=== PATIENT | female | born 1940 ===

== ENCOUNTER 2017-01-01 11:27 | Day surgery (SDC) | payer MEDICARE, OTHER ==
[2016-04-28 18:42] VITALS: BMI 23.8
[2017-01-01] MEDS ORDERED: Lidocaine 2% Inj (20ml) ONE (11:35)
[2017-01-01] MEDS ORDERED: Nitroglycerin 50mg in D5W 50 MG/250 ML BOTTLE IV ONE (11:36)
[2017-01-01] MEDS ORDERED: Iodixanol 320 MG/ML 100 ML BOTTLE IV ONE (11:36)
[2017-01-01] MEDS ORDERED: Iodixanol 320 MG/ML 200 ML BOTTLE IV ONE (11:36)
[2017-01-01 12:33] LABS: BASO # 0.01 K/mm3 (0.0-2.0); BASO % 0.2 % (0.0-3.0); EOS # 0.1 (0.0-0.7); EOS % 1.7 % (1.5-5.0); GRAN # 3.96 (1.4-6.5); GRAN % 69.2 % (50.0-68.0); LYMPH # 1.3 (1.2-3.4); LYMPH % 23.3 % (22.0-35.0); MEAN CELL VOLUME 89.7 fl (80.0-105.0); MEAN CORPUSCULAR HEMOGLOBIN 29.5 pg (25.0-35.0); MEAN CORPUSCULAR HGB CONC 32.9 g/dl (31.0-37.0); MEAN PLATELET VOLUME 9.9 fl (7.0-11.0); MONO # 0.3 (0.1-0.6); MONO % 5.6 % (1.0-6.0); RED CELL DISTRIBUTION WIDTH 13.2 % (11.5-14.5); WHITE BLOOD COUNT 5.7 10^3/ul (4.5-11.0)
[2017-01-01 12:42] LABS: INR 0.93 (0.93-1.08); PARTIAL THROMBOPLASTIN TIME 22.2 Seconds (23.7-30.8)
[2017-01-01 13:14] LABS: BLOOD UREA NITROGEN 27 mg/dL (7-21); CALCIUM 10.3 mg/dL (8.4-10.5); CARBON DIOXIDE 34 mmol/L (21-33); CHLORIDE 100 mmol/L (98-107); GFR AFRICAN-AMERICAN > 60; GLUCOSE,RANDOM 92 mg/dL (70-110); POTASSIUM 4.8 mmol/L (3.6-5.0); SODIUM 141 mmol/L (132-148)
[2017-01-01] MEDS ORDERED: Midazolam 2 MG/2 ML VIAL ONE ×3 (14:51→16:16)
[2017-01-01] MEDS ORDERED: Oxycodone/Acetaminophen 5/325 mg Tab PO PRN (17:02)
[2017-01-01] MEDS ORDERED: Sodium Chloride 0.45% 1,000 ML IV SCH (17:15)
[2017-01-01 18:19] VITALS: TEMP 98.3
--- NOTE | 2017-01-01 19:13 | VASCULAR ---
PROCEDURE: Abdominal aortogram and bilateral lower extremity runoff with right selective views. HISTORY: Severe peripheral vascular disease. Previous right SFA endovascular intervention in 2013. Occluded stent with right foot ischemia. PHYSICIAN(S): Deshawn Fan MD. TECHNIQUE: The relative risks and indications of the procedure were explained to the patient and consent obtained. The patient was hydrated prior to the procedure and the appropriate labs drawn. The patient was placed supine on the arteriogram table and the left groin prepped and draped in the usual sterile fashion. Conscious sedation and monitoring were provided throughout the procedure by a nurse. Via a left common femoral artery approach, a 5 Turkish sheath was placed in the left groin. Through the sheath and over a guidewire, a 5 Turkish flush catheter was placed in the abdominal aorta at the level of the renal arteries and a PA DSA abdominal aortogram performed. The catheter was pulled down to the aortic bifurcation and bilateral oblique DSA pelvic arteriograms performed. Overlapping bilateral lower extremity DSA arteriograms were obtained from the inguinal ligaments to the ankles. 0.035 glidewire is advanced over the bifurcation and placed in the right common femoral artery. A 6 Turkish 45 cm sheath was placed in the right common femoral artery. The occluded right SFA stent was cannulated with a 5 Turkish catheter and 0.035 glidewire. With some difficulty the stent an occluded right SFA was crossed in a subintimal manner. Unfortunately, re-entry could not be obtained in the right popliteal artery above the knee. Multiple catheters and guidewires were attempted. A [place] crossing catheter was also attempted. The sheath was removed and hemostasis obtained. The patient tolerated the procedure well. FINDINGS: The [place] arteries are somewhat small in caliber. There are single renal arteries bilaterally which are widely patent and normal in appearance. The nephrograms are symmetric in appearance. The infrarenal abdominal aorta is widely patent without a radiographically significant stenosis. The aortic bifurcation is widely patent. The common and external iliac arteries are normal in appearance without a significant stenosis. The internal iliac arteries are patent bilaterally. Right lower extremity: The right common femoral artery is patent. The right profunda femoral artery is hypertrophied. The right SFA stent is occluded. The right SFA is occluded throughout its length. There is reconstitution of a small right popliteal artery at the patella. There is severe right trifurcation and tibial occlusive disease. Faint opacification of the right anterior tibial and posterior tibial arteries is noted. Distal opacification was not obtained. Left lower extremity: Left common femoral artery is patent. The left profunda femoral artery is patent. The left superficial femoral artery is patent with 2 moderate calcified stenoses in its mid segment. The left popliteal artery is patent. Once again there is moderate to severe left tibial occlusive disease.. There is 2 vessel runoff via the left anterior tibial and peroneal arteries. The left posterior tibial artery is occluded IMPRESSION: 1. Long segment occlusion of the right SFA and stent. There is reconstitution of a small right popliteal artery at the patella 2. Moderate bilateral tibial occlusive disease. .
[2017-01-01 19:15] VITALS: O2SAT 98
[2017-01-01 19:51] VITALS: BP 138/67; PULSE 76; RESP 17
== END 2017-01-01 19:45 | disposition home or self-care (01) ==
LOC: SDSVAS 11:27
PROVIDERS: ATTEND Radiology Vascular & Interventional Radiology
DX: I73.9 Peripheral vascular disease, unspecified (principal); I10 Essential (primary) hypertension; E11.9 Type 2 diabetes mellitus without complications; Z86.73 Personal history of transient ischemic attack (TIA), and cerebral infarction without residual deficits; D64.9 Anemia, unspecified; M81.0 Age-related osteoporosis without current pathological fracture; Z87.01 Personal history of pneumonia (recurrent); Z90.49 Acquired absence of other specified parts of digestive tract
CPT/HCPCS: 36247; 36415; 75625; 75716; 80048; 85025; 85610; 85730; 99152; 99153; C1725 ×2; C1760 ×2; C1769 ×4; C1887; C1892; C1894 ×2; J0360; J1644; J2250; J2405; J3010; J7030; Q9967

== ENCOUNTER 2017-09-25 13:27 | Emergency (ER) | payer MEDICARE ==
[2017-09-25 13:28] VITALS: BMI 24.6
[2017-09-25 13:49] VITALS: O2SAT 100
--- NOTE | 2017-09-25 14:06 | ED PDOC ---
Arrival/HPI - General Chief Complaint: Weakness/Neurological Deficit Time Seen by Provider: 09/25/17 13:29 Historian: Patient - History of Present Illness Time/Duration: 1 week Symptom Course: Unchanged Past Medical History - Provider Review Nursing Documentation Reviewed: Yes - Infectious Disease Hx of Infectious Diseases: None - Cardiac Hx Hypertension: Yes - Pulmonary Hx Pneumonia: Yes - Neurological Hx Neurological Disorder: No HX Cerebrovascular Accident: Yes (1995) - HEENT Hx Glaucoma: Yes Other/Comment: Dry eye - Endocrine/Metabolic Hx Diabetes Mellitus Type 2: Yes - Hematological/Oncological Hx Anemia: Yes Hx Blood Transfusions: Yes Hx Blood Transfusion Reaction: No - Musculoskeletal/Rheumatological Hx Musculoskeletal Disorders: Yes (R SIDED WEAKNESS) - Gastrointestinal Hx Gastrointestinal Disorders: Yes Other/Comment: CA of colon in past - Genitourinary/Gynecological Hx Genitourinary Disorders: No - Psychiatric Hx Psychophysiologic Disorder: Yes Hx Anxiety: Yes Hx Substance Use: No - Surgical History Hx Section: Yes (x2) Other/Comment: Colon surgery - Anesthesia Hx Anesthesia Reactions: No Hx Malignant Hyperthermia: No - Suicidal Assessment Feels Threatened In Home Enviroment: No Family/Social History - Physician Review Nursing Documentation Reviewed: Yes Family/Social History: No Known Family HX Smoking Status: Never Smoked Hx Alcohol Use: No Hx Substance Use: No Allergies/Home Meds Allergies/Adverse Reactions: Allergies No Known Allergies Allergy (Verified 09/25/17 13:40) Home Medications: Home Meds Medication Instructions Recorded Confirmed Aspirin [Aspir 81] 81 mg PO DAILY 11/07/12 09/25/17 Metformin HCl 1,000 mg PO BID 11/07/12 09/25/17 Tramadol HCl/Acetaminophen 1 tab PO TID PRN 04/28/16 09/25/17 [Tramadol-Acetaminophn 37.5-325] Carvedilol [Coreg] 6.25 mg PO BID 12/27/16 09/25/17 Losartan [Cozaar] 50 mg PO DAILY 12/27/16 09/25/17 Alendronate [Fosamax] 1 tab PO QWK 09/25/17 09/25/17 Atorvastatin [Lipitor] 1 tab PO DAILY 09/25/17 09/25/17 Lasix 20 mg PO BID 09/25/17 09/25/17 Lumigan 1 drop OU DAILY 09/25/17 09/25/17 Sertraline [Zoloft] 25 mg PO DAILY 09/25/17 09/25/17 cycloSPORINE [Restasis] 1 drop OU BID 09/25/17 09/25/17 Review of Systems - Review of Systems Constitutional: Fatigue. absent: Weight Change, Fevers, Night Sweats Eyes: Normal. absent: Vision Changes ENT: Normal. absent: Hearing Changes, Sore Throat, Rhinorrhea Respiratory: Normal. absent: Cough, Wheezing Cardiovascular: Normal. absent: Chest Pain, Palpitations, Syncope Gastrointestinal: Normal. absent: Abdominal Pain, Diarrhea, Nausea, Vomiting, Appetite Changes, Anorexia, Food Intolerance Genitourinary Female: Normal Musculoskeletal: Normal. absent: Arthralgias, Back Pain Skin: Normal. absent: Rash Neurological: Normal. absent: Headache, Dizziness, Focal Weakness, Gait Changes , Speech Changes, Facial Droop, Disequilibrium, Seizure Endocrine: Normal Hemo/Lymphatic: Normal Psychiatric: Normal Physical Exam Vital Signs Reviewed: Yes Vital Signs Temp Pulse Resp BP Pulse Ox 09/25/17 13:33 98.3 F 58 L 16 117/64 100 Temperature: Afebrile Blood Pressure: Normal Pulse: Regular Respiratory Rate: Normal Appearance: Positive for: Well-Appearing, Non-Toxic, Comfortable Pain Distress: None Mental Status: Positive for: Alert and Oriented X 3 - Systems Exam Head: Present: Atraumatic, Normocephalic Pupils: Present: PERRL Extroacular Muscles: Present: EOMI Conjunctiva: Present: Normal Mouth: Present: Moist Mucous Membranes Respiratory/Chest: Present: Clear to Auscultation, Good Air Exchange Cardiovascular: Present: Regular Rate and Rhythm, Normal S1, S2 Abdomen: Present: Normal Bowel Sounds. No: Tenderness, Distention, Guarding Upper Extremity: Present: Normal ROM. No: Edema Lower Extremity: Present: Other (unable to flex right knee). No: Normal ROM Neurological: Present: GCS=15, CN II-XII Intact, Speech Normal, Motor Func Grossly Intact, Normal Sensory Function, Memory Normal Skin: Present: Warm Psychiatric: Present: Alert, Oriented x 3 Medical Decision Making ED Course and Treatment: Plan -CBC, EKG, CMP -cardiac iso, magnesium -reasses 09/25/17 14:06 chest xray shows no active disease trop negative 09/25/17 15:22 patient will be DC, to follow up with PMD 09/25/17 15:44 - Lab Interpretations Lab Results: 09/25/17 14:30 09/25/17 14:30 Lab Results 09/25/17 14:30: Sodium 136, Potassium 5.1 H, Chloride 95 L, Carbon Dioxide 29, Anion Gap 17, BUN 37 H, Creatinine 0.9, Est GFR ( Amer) > 60, Est GFR ( Non-Af Amer) > 60, Random Glucose 210 H, Calcium 10.1, Magnesium 1.8, Total Bilirubin 0.6, AST 16, ALT 21, Alkaline Phosphatase 65, Lactate Dehydrogenase 384, Total Creatine Kinase 45, Troponin I < 0.01, Total Protein 7.1, Albumin 4.0 , Globulin 3.0, Albumin/Globulin Ratio 1.3 09/25/17 14:30: Urine Color Yellow, Urine Appearance Clear, Urine pH 6.0, Ur Specific [place] 1.010, Urine Protein Negative, Urine Glucose (UA) 250 H, Urine Ketones Negative, Urine Blood Negative, Urine Nitrate Negative, Urine Bilirubin Negative, Urine Urobilinogen 0.2, Ur Leukocyte Esterase Trace H, Urine RBC 0 - 2 , Urine WBC 2 - 5, Ur Epithelial Cells 4 - 5, Urine Bacteria Few 09/25/17 14:30: PT 11.2, INR 0.98, APTT 34.2 09/25/17 14:30: WBC 7.7 D, RBC 3.72, Hgb 10.5 L, Hct 31.9 L, MCV 85.8 D, MCH 28.2, MCHC 32.9, RDW 12.7, Plt Count 220, MPV 9.9, Gran % 71.9 H, Lymph % (Auto ) 22.4, [place] % (Auto) 4.0, Eos % (Auto) 1.4 L, Baso % (Auto) 0.3, Gran # 5.54, Lymph # (Auto) 1.7, [place] # (Auto) 0.3, Eos # (Auto) 0.1, Baso # (Auto) 0.02 I have reviewed the lab results: Yes - RAD Interpretation Radiology Orders: 09/25/17 14:02 CHEST PORTABLE [RAD] Stat Disposition/Present on Arrival - Present on Arrival Any Indicators Present on Arrival: No History of DVT/PE: No History of Uncontrolled Diabetes: Yes Urinary Catheter: No History of Decub. Ulcer: No History Surgical Site Infection Following: None - Disposition Have Diagnosis and Disposition been Completed?: Yes Diagnosis: Weakness Disposition: HOME/ ROUTINE Disposition Time: 15:44 Condition: FAIR Discharge Instructions (ExitCare): Weakness (ED) Forms: [facility] (Irish)
--- NOTE | 2017-09-25 14:32 | RAD ---
HISTORY: generalized weakness COMPARISON: 07/03/2016 FINDINGS: LUNGS: No active pulmonary disease. PLEURA: No significant pleural effusion identified, no pneumothorax apparent. CARDIOVASCULAR: Normal. OSSEOUS STRUCTURES: No significant abnormalities. VISUALIZED UPPER ABDOMEN: Normal. OTHER FINDINGS: None. IMPRESSION: No active disease.
[2017-09-25 15:03] LABS: BASO # 0.02 K/mm3 (0.0-2.0); BASO % 0.3 % (0.0-3.0); EOS # 0.1 (0.0-0.7); EOS % 1.4 % (1.5-5.0); GRAN # 5.54 (1.4-6.5); GRAN % 71.9 % (50.0-68.0); HEMOGLOBIN 10.5 g/dL (12.0-16.0); LYMPH # 1.7 (1.2-3.4); LYMPH % 22.4 % (22.0-35.0); MEAN CELL VOLUME 85.8 fl (80.0-105.0); MEAN CORPUSCULAR HEMOGLOBIN 28.2 pg (25.0-35.0); MEAN CORPUSCULAR HGB CONC 32.9 g/dl (31.0-37.0); MEAN PLATELET VOLUME 9.9 fl (7.0-11.0); MONO # 0.3 (0.1-0.6); RBC 3.72 10^6/uL (3.5-6.1); RED CELL DISTRIBUTION WIDTH 12.7 % (11.5-14.5); WHITE BLOOD COUNT 7.7 10^3/ul (4.5-11.0)
[2017-09-25 15:04] LABS: URINE BILIRUBIN NEGATIVE (NEGATIVE); URINE BLOOD NEGATIVE (NEGATIVE); URINE GLUCOSE (UA) 250 mg/dL (NEGATIVE); URINE LEUKOCYTE ESTERASE TRACE Leu/uL (NEGATIVE); URINE PROTEIN NEGATIVE mg/dL (<30 mg/dL); URINE UROBILINOGEN 0.2 E.U./dL (<1 E.U./dL)
[2017-09-25 15:07] LABS: URINE APPEARANCE CLEAR (CLEAR); URINE BACTERIA FEW (NEG); URINE COLOR YELLOW (YELLOW); URINE RBC 0 - 2 /hpf (0-2)
[2017-09-25 15:11] LABS: INR 0.98 (0.93-1.08); PARTIAL THROMBOPLASTIN TIME 34.2 Seconds (25.1-36.5); PROTHROMBIN TIME 11.2 SECONDS (9.4-12.5)
[2017-09-25 15:12] LABS: ALB/GLOB RATIO 1.3 (1.1-1.8); ALT/SGPT 21 U/L (7-56); AST/SGOT 16 U/L (14-36); BLOOD UREA NITROGEN 37 mg/dL (7-21); CALCIUM 10.1 mg/dL (8.4-10.5); GFR AFRICAN-AMERICAN > 60; GFR NON-AFRICAN AMERICAN > 60
[2017-09-25 15:24] LABS: TROPONIN I < 0.01 ng/mL
[2017-09-25 15:45] VITALS: PULSE 60; RESP 18
[2017-09-25 16:35] VITALS: BP 142/72; TEMP 98.1
--- NOTE | 2017-09-26 08:15 | CARD ---
APPROVED REPORT EKG Measurement Heart [id number] <Conclusion> Sinus bradycardia Otherwise normal ECG
== END 2017-09-25 16:32 | disposition home or self-care (01) ==
LOC: ED 13:27
DX: R53.1 Weakness (principal); I10 Essential (primary) hypertension; E11.9 Type 2 diabetes mellitus without complications; D64.9 Anemia, unspecified; Z86.73 Personal history of transient ischemic attack (TIA), and cerebral infarction without residual deficits

== ENCOUNTER 2017-11-16 08:41 | Day surgery (SDC) | payer MEDICARE ==
[2017-11-15 08:13] VITALS: BMI 23.1
[2017-11-16] MEDS ORDERED: Sodium Chloride 0.9% 1,000 ML IV SCH (10:00)
[2017-11-16] MEDS ORDERED: Propofol 10 mg/ml Inj (20 ML) ONE (10:09)
[2017-11-16 10:54] VITALS: PULSE 67
[2017-11-16 12:19] VITALS: BP 151/67; RESP 16; TEMP 68; O2SAT 98
== END 2017-11-16 12:27 | disposition home or self-care (01) ==
LOC: ENDO 08:41
PROVIDERS: ATTEND Internal Medicine Gastroenterology
DX: K25.9 Gastric ulcer, unspecified as acute or chronic, without hemorrhage or perforation (principal); D50.9 Iron deficiency anemia, unspecified; I10 Essential (primary) hypertension; E11.9 Type 2 diabetes mellitus without complications; H40.9 Unspecified glaucoma; E78.00 Pure hypercholesterolemia, unspecified; Z85.038 Personal history of other malignant neoplasm of large intestine; Z79.84 Long term (current) use of oral hypoglycemic drugs
CPT/HCPCS: 43239; 82948; 88305; 88342; J0360; J2001; J2704; J7030; J7040

== ENCOUNTER 2018-02-11 09:19 | Day surgery (SDC) | payer MEDICARE ==
[2018-02-04 17:07] VITALS: BMI 23.7
[2018-02-11] MEDS ORDERED: Propofol 10 mg/ml Inj (20 ML) ONE (11:44)
[2018-02-11] MEDS ORDERED: Midazolam 2 MG/2 ML VIAL ONE (11:44)
[2018-02-11] MEDS ORDERED: Sodium Chloride 0.9% 1,000 ML IV SCH (12:15)
[2018-02-11 13:40] VITALS: BP 145/60; RESP 16; TEMP 97.8; O2SAT 99
[2018-02-11 13:41] VITALS: PULSE 60
== END 2018-02-11 14:22 | disposition home or self-care (01) ==
LOC: ENDO 09:19
PROVIDERS: ATTEND Internal Medicine Gastroenterology
DX: K25.4 Chronic or unspecified gastric ulcer with hemorrhage (principal); K29.50 Unspecified chronic gastritis without bleeding; K44.9 Diaphragmatic hernia without obstruction or gangrene; K31.9 Disease of stomach and duodenum, unspecified; K62.5 Hemorrhage of anus and rectum
CPT/HCPCS: 43239; 88305; 88342; J2001; J2250; J2704; J7030; J7040

== ENCOUNTER 2018-06-06 07:50 | Outpatient (CLI) | payer MEDICARE, OTHER | END 2018-06-06 07:51 | disposition home or self-care (01) | LOC: CARDIO 07:50 ==

== ENCOUNTER 2018-06-18 07:37 | Day surgery (SDC) | payer MEDICARE, OTHER ==
[2018-06-12 12:35] VITALS: BMI 23.9
[2018-06-18 08:30] LABS: BASO # 0.02 K/mm3 (0.0-2.0); BASO % 0.4 % (0.0-3.0); EOS # 0.2 (0.0-0.7); EOS % 4.9 % (1.5-5.0); HEMOGLOBIN 11.3 g/dL (12.0-16.0); LYMPH # 1.4 (1.2-3.4); LYMPH % 29.1 % (22.0-35.0); MEAN CELL VOLUME 86.9 fl (80.0-105.0); MEAN CORPUSCULAR HEMOGLOBIN 27.9 pg (25.0-35.0); MEAN CORPUSCULAR HGB CONC 32.1 g/dl (31.0-37.0); MEAN PLATELET VOLUME 10.6 fl (7.0-11.0); MONO # 0.4 (0.1-0.6); MONO % 7.1 % (1.0-6.0); RBC 4.05 10^6/uL (3.5-6.1); RED CELL DISTRIBUTION WIDTH 12.8 % (11.5-14.5); WHITE BLOOD COUNT 4.9 10^3/uL (4.5-11.0)
[2018-06-18 08:34] LABS: INR 0.95; PARTIAL THROMBOPLASTIN TIME 29.3 Seconds (26.9-38.3); PROTHROMBIN TIME 10.7 SECONDS (9.4-12.5)
[2018-06-18 08:35] LABS: BLOOD UREA NITROGEN 17 mg/dL (7-21); CALCIUM 10.4 mg/dL (8.4-10.5); GFR NON-AFRICAN AMERICAN > 60
[2018-06-18] MEDS ORDERED: Lidocaine PF 2% (5 ml) Inj (For Cardiac Arrhy) ONE (10:43)
[2018-06-18] MEDS ORDERED: Iodixanol 320 MG/ML 100 ML BOTTLE IV ONE (10:44)
[2018-06-18] MEDS ORDERED: Iodixanol 320 MG/ML 200 ML BOTTLE IV ONE (10:44)
[2018-06-18] MEDS ORDERED: Iohexol 350mgl/ml 50 ML ONE (10:44)
[2018-06-18] MEDS ORDERED: Midazolam 2 MG/2 ML VIAL ONE (11:06)
[2018-06-18] MEDS ORDERED: Eptifibatide 20 mg/10mL Inj IVP ONE (11:20)
[2018-06-18] MEDS ORDERED: Phenylephrine 10 mg/ml Inj ONE (11:29)
[2018-06-18] MEDS ORDERED: Sodium Chloride 0.9% 1,000 ML IV SCH (12:00)
[2018-06-18] MEDS: TraMADol/Apap 37.5/325 mg Tab PO SCH ×2 (13:39→18:34)
--- NOTE | 2018-06-18 14:43 | CARDCATH ---
PROCEDURE DATE: 06/18/2018 CARDIAC CATHETERIZATION HISTORY The patient is an 78-year-old woman who presents with exertional angina. She suffers from peripheral vascular disease and diabetes mellitus. A stress test was abnormal. Because of this, cardiac catheterization was recommended. PROCEDURE: Left heart catheterization with coronary angiography, left ventriculogram, aortic root injection followed by percutaneous transluminal coronary angioplasty and stent of an left anterior descending coronary artery and right coronary artery. The right femoral artery was cannulated with 6-Thai sheath, there were no complications. I performed moderate sedation which included the presence of an independent trained observer that assisted in monitoring the patient's level of consciousness and physiologic status. After administration of Versed and fentanyl, my intra service time was 45 minutes. The findings on catheterization revealed diffuse atherosclerosis and calcification through her coronary tree. The RCA revealed diffuse atherosclerosis with a long 70% stenoses in the midportion. The left main artery was diffusely diseased and without discrete lesion. The circumflex artery was markedly tortuous and calcified and revealed two 90% lesions in the proximal and midportion. The LAD revealed diffuse atherosclerosis and revealed a long 70%-80% stenoses in the midportion. LV function was normal with an EF of 70%. Supra-aortic valvular injection revealed no aortic insufficiency. The patient was started on intravenous Angiomax and given two doses of IV Integrilin. The guiding catheter was placed in the ostium of the left main artery. wire was used to cross the critical lesion in the LAD. A long 2.25 JOSH stent was placed and deployed the mid LAD. Repeat coronary angiography revealed an excellent result. The RCA guider was then placed in the ostium of the RCA and wire was used to cross the lesion. A long JSOH stent was placed in the RCA with excellent results. The circumflex artery was markedly tortuous and calcified. We will need to bring her back given the extensive nature of the disease which will require a higher dose of contrast material. Because of severe peripheral vascular disease, manual compression will be used to close the femoral artery site. The patient tolerated the procedure well. In summary, the procedure was successful PTCA and stent of an LAD and RCA with drug-eluting stents. Cardiac catheterization reveals severe triple-vessel CAD with heavy calcification. Normal LV function. No aortic insufficiency. Severe peripheral vascular disease. Given these findings, the patient will need to remain on aspirin indefinitely and Plavix for at least a year. We will bring her back in 48 hours for PTCA and stent of the circumflex artery. Deshawn Mansfield MD
[2018-06-18 19:22] VITALS: RESP 18
[2018-06-19 01:09] VITALS: TEMP 98.5
[2018-06-19 06:54] LABS: BASO # 0.01 K/mm3 (0.0-2.0); BASO % 0.2 % (0.0-3.0); EOS # 0.2 (0.0-0.7); EOS % 2.6 % (1.5-5.0); LYMPH # 1.3 (1.2-3.4); LYMPH % 19.1 % (22.0-35.0); MEAN CELL VOLUME 88.8 fl (80.0-105.0); MEAN CORPUSCULAR HEMOGLOBIN 28.4 pg (25.0-35.0); MEAN PLATELET VOLUME 9.6 fl (7.0-11.0); MONO # 0.7 (0.1-0.6); MONO % 10.2 % (1.0-6.0); RBC 3.2 10^6/uL (3.5-6.1); RED CELL DISTRIBUTION WIDTH 13.3 % (11.5-14.5); WHITE BLOOD COUNT 6.6 10^3/uL (4.5-11.0)
[2018-06-19 06:58] LABS: BLOOD UREA NITROGEN 24 mg/dL (7-21); CALCIUM 9.1 mg/dL (8.4-10.5); GFR NON-AFRICAN AMERICAN 53
[2018-06-19 07:00] LABS: HEMOGLOBIN 9.1 g/dL (12.0-16.0)
--- NOTE | 2018-06-19 07:57 | CARD ---
APPROVED REPORT Date of service: 06/18/2018 EKG Measurement Heart [id number] <Conclusion> Normal sinus rhythm Normal ECG
[2018-06-19 08:27] VITALS: PULSE 62
--- NOTE | 2018-06-19 08:51 | PN ---
DATE: 06/19/2018 CARDIOLOGY FOLLOWUP SUBJECTIVE: The patient is comfortable without symptoms. PHYSICAL EXAMINATION VITAL SIGNS: Blood pressure is 148/57, heart rate is in the 60s. NECK: Negative JVD. CARDIOPULMONARY: Heart S1, S2. LUNGS: Without rales. EXTREMITIES: Without edema. Right groin site is stable. LABORATORY DATA: Hemoglobin is 9.1. Chemistries; BUN and creatinine are unremarkable. IMPRESSION 1. Stable post percutaneous transluminal coronary angioplasty and stent of left anterior descending and right coronary artery. 2. Triple-vessel coronary artery disease. 3. Diabetes mellitus. 4. Severe peripheral vascular disease. PLAN: Given these findings, the patient has elected to go home today. She will come back in the morning for PTCA and stent of a complex circumflex artery. Deshawn Mansfield MD
[2018-06-19 09:03] VITALS: BP 147/56; O2SAT 97
[2018-06-19] MEDS: TraMADol/Apap 37.5/325 mg Tab PO SCH (09:23)
== END 2018-06-19 11:34 | disposition home or self-care (01) ==
LOC: CATH 07:37 → 2RSO 12:44 → CATH 06-19 11:34
PROVIDERS: ATTEND Internal Medicine Cardiovascular Disease
DX: I25.118 Atherosclerotic heart disease of native coronary artery with other forms of angina pectoris (principal); E11.51 Type 2 diabetes mellitus with diabetic peripheral angiopathy without gangrene; Z79.84 Long term (current) use of oral hypoglycemic drugs
CPT/HCPCS: 36415 ×2; 80048 ×2; 82948 ×2; 85025 ×2; 85610; 85730; 86850; 86900; 93005; 93458; 99152; 99153; C1725; C1769 ×2; C1874 ×2; C1887 ×3; C2629; C9600; C9601; J0360; J0583; J1327; J1644; J2250; J2370; J3010; J7030; Q9966; Q9967

== ENCOUNTER 2018-06-20 06:47 | Day surgery (SDC) | payer MEDICARE, OTHER | END 2018-06-21 14:21 | disposition home or self-care (01) | LOC: CATH 06:47 → 2RSO 10:03 | DX: I25.10 Atherosclerotic heart disease of native coronary artery without angina pectoris (principal); I10 Essential (primary) hypertension; E11.51 Type 2 diabetes mellitus with diabetic peripheral angiopathy without gangrene; I69.351 Hemiplegia and hemiparesis following cerebral infarction affecting right dominant side; D50.9 Iron deficiency anemia, unspecified; E78.00 Pure hypercholesterolemia, unspecified; Z85.038 Personal history of other malignant neoplasm of large intestine; Z79.82 Long term (current) use of aspirin; Z79.84 Long term (current) use of oral hypoglycemic drugs; Z87.11 Personal history of peptic ulcer disease ==

== ENCOUNTER 2018-08-06 11:34 | Outpatient (CLI) | payer MEDICARE | END 2018-08-06 11:35 | disposition home or self-care (01) | LOC: LAB 11:34 ==